=== PATIENT | female | born 1935 | race Caucasian/White ===

== ENCOUNTER 2024-12-27 14:32 | Inpatient (IN) | payer MEDICARE, OTHER ==
[~2024-12-27] VITALS: Ht 162.6 cm; Wt 62.2 kg
[2024-12-27 15:23] LABS: PLATELET COUNT (AUTO) 284 K/uL (150-450); RED BLOOD CELL COUNT(AUTO) 2.94 MIL/uL (4.0-5.2); RED CELL DISTRIBUTION WIDTH 16.1 % (11.5-15.0); WHITE BLOOD COUNT (AUTO) 12.6 K/uL (4.3-11.0)
[2024-12-27 15:26] LABS: CALCIUM, SERUM 8.5 mg/dL (8.5-10.1); CREATININE 1.3 mg/dL (0.6-1.3); SODIUM SERUM 134 mmol/L (136-145); UREA NITROGEN, BLOOD 17 mg/dL (7-18)
[2024-12-27 15:31] LABS: ASPARTATE AMINOTRANSFERASE 15 U/L (15-37); TOTAL PROTEIN, SERUM 6.2 g/dL (6.4-8.2)
[2024-12-27 15:32] LABS: INR 1.26 (0.91-1.10)
[2024-12-27 15:34] LABS: LACTIC ACID 3.0 mmol/L (0.4-2.0)
[2024-12-27] MEDS ORDERED: IOHEXOL-350 100 ML VIAL IV ONE (16:05)
[2024-12-27] MEDS ORDERED: IV NS 0.9% 250 ML IV ONE (16:06)
[2024-12-27] MEDS ORDERED: CT SWABBABLE VALVE TRANS SET 1 EA INFUS.SET MC ONE (16:06)
[2024-12-27] MEDS ORDERED: RIVA10TA PO (16:45)
[2024-12-27] MEDS ORDERED: DOCU-141 PO (16:45)
[2024-12-27] MEDS ORDERED: LOSA50TA39 PO (16:45)
[2024-12-27] MEDS ORDERED: SPIR25TA6 PO (16:45)
[2024-12-27] MEDS ORDERED: PRED5TAB PO (16:45)
[2024-12-27] MEDS ORDERED: NEBI5TAB8 PO (16:45)
[2024-12-27] MEDS ORDERED: [UNRECOGNIZED DRUG - CODE] PO (16:45)
[2024-12-27] MEDS ORDERED: ONDA8TAB65 PO (16:45)
[2024-12-27] MEDS ORDERED: ASPI-1420 PO (16:45)
[2024-12-27] MEDS ORDERED: ALIGN PO (16:45)
[2024-12-27] MEDS ORDERED: OLAN2.5T3 PO (16:45)
[2024-12-27] MEDS ORDERED: OSIM40TA PO (16:45)
[2024-12-27] MEDS ORDERED: ZOLPIDEM TARTRATE 5 MG TABLET PO PRN (18:00)
[2024-12-27] MEDS ORDERED: MAG HYDROX/AL HYDROX/SIMETH 30 ML UDC PO PRN (18:00)
[2024-12-27] MEDS ORDERED: MAGNESIUM HYDROXIDE 30 ML UDC PO PRN (18:00)
[2024-12-27] MEDS ORDERED: ONDANSETRON HCL/PF 4 MG/2 ML VIAL IVP PRN (18:00)
[2024-12-27] MEDS ORDERED: Z GUARD REMEDY 4 OZ OINT TP PRN (18:00)
[2024-12-27] MEDS ORDERED: PEG 3350/NA SULF,BICARB,CL/KCL 4,000 ML BOTTLE PO ONE (20:00)
[2024-12-27 20:26] LABS: PLATELET COUNT (AUTO) 243 K/uL (150-450); RED BLOOD CELL COUNT(AUTO) 2.66 MIL/uL (4.0-5.2); RED CELL DISTRIBUTION WIDTH 15.9 % (11.5-15.0); WHITE BLOOD COUNT (AUTO) 8.2 K/uL (4.3-11.0)
[2024-12-27] MEDS: PANTOPRAZOLE 40 MG VIAL IV SCH (21:00)
[2024-12-27 21:50] VITALS: BP 131/61; TEMP 97.9; O2SAT 93
[2024-12-27] MEDS: OLANZAPINE 2.5 MG TABLET PO SCH (23:40)
[2024-12-27] MEDS: IV D5/0.45 NACL 1,000 ML IV PRN (23:40)
[2024-12-28] VITALS (15 sets, daily range): BP systolic 117–156; BP diastolic 50–72; TEMP 97.3–99; O2SAT 93–100
[2024-12-28 06:50] LABS: PLATELET COUNT (AUTO) 224 K/uL (150-450); RED BLOOD CELL COUNT(AUTO) 2.32 MIL/uL (4.0-5.2); RED CELL DISTRIBUTION WIDTH 16.2 % (11.5-15.0); WHITE BLOOD COUNT (AUTO) 5.6 K/uL (4.3-11.0)
[2024-12-28 07:18] LABS: CALCIUM, SERUM 7.7 mg/dL (8.5-10.1); CREATININE 1.0 mg/dL (0.6-1.3); PHOSPHORUS 2.9 mg/dL (2.5-4.9); SODIUM SERUM 138.0 mmol/L (136-145); UREA NITROGEN, BLOOD 15.0 mg/dL (7-18)
[2024-12-28] MEDS: LOSARTAN POTASSIUM 50 MG TABLET PO SCH (08:47)
[2024-12-28] MEDS ORDERED: Medication Not On Formulary EA (Nebivolol Hcl (Bystolic) 5 MG) PO SCH (09:00)
[2024-12-28 11:49] LABS: BASOPHILS % (MANUAL) 0 % (0.0-2.0); EOSINOPHILS % (MANUAL) 0 % (0-4); LYMPHOCYTES % (MANUAL) 6 % (16-48); MONOCYTES % (MANUAL) 5 % (0-11.0); NEUTROPHILS % (MANUAL) 89 (42-76); PLATELET ESTIMATE ADEQUATE
[2024-12-28 20:28] LABS: LACTIC ACID 3.0 mmol/L (0.4-2.0)
[2024-12-29] VITALS: BP 150/71; TEMP 98.6; O2SAT 100
[2024-12-29] MEDS: ACETAMINOPHEN 325 MG TABLET PO PRN (00:15)
[2024-12-29] MEDS ORDERED: IPRATROPIUM NEB FS 0.5 MG/2.5 ML AMPUL.NEB NEB PRN (02:00)
[2024-12-29] MEDS ORDERED: ALBUTEROL FS 2.5 MG/3 ML VIAL.NEB NEB PRN (02:00)
[2024-12-29 05:00] VITALS: BP 145/86; TEMP 98.8; O2SAT 97
[2024-12-29 08:00] VITALS: BP 112/64; TEMP 97.7; O2SAT 98
[2024-12-29 08:34] LABS: CALCIUM, SERUM 8.0 mg/dL (8.5-10.1); CREATININE 1.1 mg/dL (0.6-1.3); PHOSPHORUS 2.9 mg/dL (2.5-4.9); SODIUM SERUM 136.0 mmol/L (136-145); UREA NITROGEN, BLOOD 16.0 mg/dL (7-18)
[2024-12-29 08:42] VITALS: BP 142/64
[2024-12-29] MEDS ORDERED: OSIMERTINIB MESYLATE 40 MG PO SCH (09:00)
[2024-12-29 09:06] LABS: IRON, SERUM 8.0 ug/dl (50-175)
[2024-12-30 09:09] LABS: FOLIC ACID 7.0 ng/mL (>3.0); IMMUNOGLOBULIN A, SERUM 140 mg/dL (64-422); IMMUNOGLOBULIN M, SERUM 55 mg/dL (26-217)
[2024-12-30 11:07] LABS: FREE KAPPA LT CHAINS SERUM 23.1 mg/L (3.3-19.4); FREE LAMBDA LT CHAIN SERUM 25.5 mg/L (5.7-26.3); KAPPA/LAMBDA RATIO SERUM 0.91 (0.26-1.65)
[2025-01-12 14:11] LABS: *SPE A/G RATIO 0.8 (0.7-1.7); *SPE ALBUMIN 2.1 g/dL (2.9-4.4); *SPE ALPHA-1-GLOBULIN 0.3 g/dL (0.0-0.4); *SPE ALPHA-2-GLOBULIN 0.7 g/dL (0.4-1.0); *SPE BETA GLOBULIN 0.8 g/dL (0.7-1.3); *SPE GLOBULIN, TOTAL 2.5 g/dL (2.2-3.9); *SPE M-SPIKE Not Observed g/dL (Not Observed); *SPE PROTEIN TOTAL 4.6 g/dL (6.0-8.5); *SPEGAMMA GLOBULIN 0.6 g/dL (0.4-1.8)
== END 2024-12-29 13:15 | disposition left against medical advice (07) | DRG 378 ==
LOC: ER 14:43 → TELE 21:34
PROVIDERS: ADMIT Student in an Organized Health Care Education/Training Program; ATTEND Student in an Organized Health Care Education/Training Program
PROC: 30233N1 Transfusion of Nonautologous Red Blood Cells into Peripheral Vein, Percutaneous Approach (ICD-10-PCS; principal; 2024-12-28)
DX: K92.2 Gastrointestinal hemorrhage, unspecified (principal); D62 Acute posthemorrhagic anemia; C78.7 Secondary malignant neoplasm of liver and intrahepatic bile duct; C79.51 Secondary malignant neoplasm of bone; D68.59 Other primary thrombophilia; I10 Essential (primary) hypertension; I25.10 Atherosclerotic heart disease of native coronary artery without angina pectoris; K21.9 Gastro-esophageal reflux disease without esophagitis; Z86.718 Personal history of other venous thrombosis and embolism; Z79.01 Long term (current) use of anticoagulants; Z95.828 Presence of other vascular implants and grafts; Z95.5 Presence of coronary angioplasty implant and graft; R55 Syncope and collapse; K64.9 Unspecified hemorrhoids; K57.30 Diverticulosis of large intestine without perforation or abscess without bleeding; Z85.118 Personal history of other malignant neoplasm of bronchus and lung; Z53.29 Procedure and treatment not carried out because of patient's decision for other reasons; Z88.1 Allergy status to other antibiotic agents
CPT/HCPCS: 36415; 71045-TC; 80048-TC; 80076-TC; 82607-TC; 82728-TC; 82784; 83540-TC; 83605-TC; 83690-TC; 83735-TC; 84100-TC; 84155; 84165; 84443-TC; 84484-TC; 85025-TC; 85027-TC; 85730-TC; 86334; 86850-TC; 93307-TC; 93970-TC; 97110-TC; 97112-TC; 97530-TC; A4223; G0378; J2470; J3490; J7050; J7512; P9016; Q9967